=== PATIENT | female | born 1985 | race Caucasian/White ===

== ENCOUNTER 2021-01-19 17:33 | Emergency (ER) | payer SELFPAY ==
[2021-01-19 17:38] VITALS: PULSE 90
[2021-01-19 18:07] VITALS: BP 130/70; PULSE 87; RESP 22; TEMP 36.3; O2SAT 100; BMI 41.0
--- NOTE | 2021-01-19 19:08 | PC.NURSE ---
Discussed pt with charge machine operator at 1800. No beds available at that time. Pt noted by charge to be brought back as soon as possible. Pt aware but lwt.
== END 2021-01-19 19:03 | disposition left against medical advice (07) ==
PROVIDERS: Emergency Provider Emergency Medicine
DX: R10.9 Unspecified abdominal pain (principal); Z93.2 Ileostomy status
CPT/HCPCS: 99281; 99282